=== PATIENT | female | born 1930 | race Caucasian/White ===

== ENCOUNTER 2016-08-15 08:05 | Emergency (ER) | payer OTHER ==
--- NOTE | 2016-08-15 08:30 | ED Physician Chart ---
Chief Complaint/HPI - Patient Information Date Seen:: 08/15/16 Time Seen:: 08:20 Chief Complaint:: R wrist and forearm pain since 5 pm yesterday. History of Present Illness:: Pt is [place] speaking. Interpretation is provided by her son Sushil per pt's request. Pt c/o pain in R wrist and forearm after she slipped and fell in her backyard. No LOC. No head or neck injury. No other bodily injury or pain. Pt has h/o HTN, but she has not taken her antihypertensive medications since last evening. Allergies:: Allergies Allergy/AdvReac Type Severity Reaction Status Date / Time codeine Allergy Verified 08/15/16 08:19 Vitals:: see Nurse Note. Historian:: Patient Family MD/PCP:: Dr. Garibay LMP:: Postmenopausal Review:: Nurse's Note Reviewed Review of Systems - Review of Systems General/Constitutional: No fever, No chills, No weight loss, No weakness, No diaphoresis, No edema, No loss of appetite Skin: No skin lesions, No rash, No bruising Head: No headache, No light-headedness Eyes: No loss of vision, No pain, No diplopia ENT: No earache, No nasal drainage, No sore throat, No tinnitus Neck: No neck pain, No swelling, No thyromegaly, No stiffness, No mass noted Cardio Vascular: No chest pain, No palpitations, No PND, No orthopnea, No edema Pulmonary: No SOB, No cough, No sputum, No wheezing GI: No nausea, No vomiting, No diarrhea, No pain, No melena, No hematochezia, No constipation, No hematemesis G/U: No dysuria, No frequency, No hematuria Musculoskeletal: Bone or joint pain (R wrist and forearm pain, see HPI.), No back pain, No muscle pain Endocrine: No polyuria, No polydipsia Psychiatric: No prior psych history Hematopoietic: No bruising, No lymphadenopathy Allergic/Immuno: No urticaria, No angioedema Neurological: No syncope, No focal symptoms, No weakness, No paresthesia, No headache, No seizure, No dizziness, No confusion, No vertigo Past Medical History - Past Medical History Past Medical History: HTN, DM (with last Accuchek this morning was 107.) Family History: Diabetes Melitus (sister) Social History: Non Smoker, No Alcohol, No Drug Use, , Other (lives with her son.) Employment:: Retired. Surgical History: Cholecystectomy (about 41 y/a), Hysterectomy (about 41 y/a.) Psychiatricy History: None Medication: Reviewed Family Medical History - Family Member Mother History Unknown: Yes Physical Exam - Physical Examination General/Constitutional: Awake, Well-developed, well-nourished, Alert, No distress, GCS 15, Non-toxic appearing, Ambulatory Other Gen/Cons comments:: Breathes comfortably, speaks clearly, and ambulates without difficulty. Head: Atraumatic Eyes: Lids, conjuctiva normal, PERRL, EOMI Skin: Nl inspection, No rash, No skin lesions, No ecchymosis, Well hydrated, No lymphadenopathy Neck: Nontender, Full ROM w/o pain, No JVD, No nuchal rigidity, No mass, No stridor Respiratory: Nl effort/Exclusion, Clear to Auscultation, No Wheeze/Rhonchi/Rales Cardio Vascular: RRR, No murmur, gallop, rubs, NL S1 S2 GI: No tenderness/rebounding/guarding, No organomegaly, No hernia, Normal BS's, Nondistended, No mass/bruits, No McBurney tenderness Other GI comments:: Abdomen is soft. Other Extremities comments:: RUE: Tenderness to palpation at lateral aspect of distal forearm/wrist with trace ecchymosis and minimal swelling. No definite snuff box tenderness. ROM is slightly decreased due to pain. No gross deformity, erythema, or open wound. There is also mild tenderness at lateral mid forearm without erythema, swelling , ecchymosis, or open wound. No detectable motor/sensory/vascular deficit. Good distal pulse. Neuro/Psych: Alert/oriented (oriented x 3), Judgement/insight normal, Mood normal, Normal gait, No focal deficits Misc: normal gait, Normal back, No paraspinal tenderness Labs/Radiology/EKG Results - Radiology Results Results: R wrist X-ray (3 v.): Based on my interpretation, impacted fx of distal radius without significant displacement. Official report is pending. R forearm X-ray ( 3 v.): Based on my interpretation, impacted fx of distal radius without significant displacement. Official report is pending ED Septic Shock - . Is Septic Shock (SBP<90, OR Lactate>4 mmol\L) present?: No Reassessment (Disposition) - Reassessment Reassessment:: 0945 Pt remains stable and feels much better. X-rays just became available. Radiological findings have been reviewed with pt. Management plan has been discussed. Interpretation by his son Sushil. 1010 Pt was reexamined after splint was placed. It was properly placed. No neurovascular deficit. Pt requests to go home now and will take her morning dose of Losartan when she gets home and will continue to monitor her BP at home. Aftercare instructions have been given. Interpretation is provided by his son Sushil. Reassessment Condition:: Improved - Diagnosis Diagnosis:: s/p mechanical fall with impacted fracture of R distal radius, stable. HTN, suboptimally controlled because pt has missed her last doses of antihypertensive medications since last evening. Pt has been informed about health risks associated with poorly controlled or uncontrolled HTN. Pt states that she will be compliant with her antihypertensive therapy and will continue monitoring her BP at home. - Aftercare/Follow up Instructions Aftercare/Follow-Up Instructions:: Refer to Discharge Instructions Notes:: Continue current care and medications. Wear R thumb spica splint and arm sling as directed. Fracture instructions given. May take Tylenol 500 mg tab one tab po q4-6h prn pain. F/U with PCP Dr. Garibay in one day for recheck and consideration for orthopedic referral. Return to ER immediately if condition worsens or if any further questions/problems. Medication Prescribed:: None - Patient Disposition Discharge/Transfer:: Home Time:: 10:15 Condition at Disposition:: Stable, Improved ED Discharge Plan - Patient Disposition Admit/Discharge/Transfer: PT DISCHARGED HOME Condition at Disposition: Improved Instructions: Arm Sling Use, [id number], Wrist Fracture, [id number] Accepting Physician: , Primary [Other]
--- NOTE | 2016-08-15 09:50 | Diagnostic Imaging Report ---
Right wrist (4 views) HISTORY: Pain Cortical irregularity that appears chronic noted along the lateral aspect of the distal radial metaphysis. No discrete fracture line is seen at this time. Joint spaces are maintained. Mild degenerative changes noted about the first carpal metacarpal joint region. Vascular calcification noted. IMPRESSION: 1. Cortical irregularity along the lateral aspect of the distal radius that appears chronic. However, in the presence of recent trauma and persistent symptoms, a repeat radiograph in 5 -- 7 days may be helpful for detection of an acute fracture. 2. Mild degenerative changes 3. Vascular calcification
--- NOTE | 2016-08-15 09:51 | Diagnostic Imaging Report ---
Right forearm (2 views) HISTORY: Pain, trauma No acute bony abnormality. No fractures. Vascular calcification noted. IMPRESSION: 1. No acute bony abnormalities In the presence of recent trauma and persistent symptoms, a repeat radiograph in 5-7 days may be helpful for detection of a subtle or occult fracture.
== END 2016-08-15 10:00 | disposition home or self-care (01) ==
LOC: ER 08:05
DX: T14.8 Other injury of unspecified body region (principal); I10 Essential (primary) hypertension; E11.9 Type 2 diabetes mellitus without complications; Z90.49 Acquired absence of other specified parts of digestive tract; Z90.710 Acquired absence of both cervix and uterus; Z88.6 Allergy status to analgesic agent; W01.0XXA Fall on same level from slipping, tripping and stumbling without subsequent striking against object, initial encounter; Y93.89 Activity, other specified; Y92.89 Other specified places as the place of occurrence of the external cause; Y99.8 Other external cause status
CPT/HCPCS: 99284; 96372; 29125; 73110; 73090; J1885; Z7502

== ENCOUNTER 2017-09-01 23:45 | Emergency (ER) | payer MEDICARE, OTHER ==
--- NOTE | 2017-09-02 00:23 | ED Physician Chart ---
ED Chief Complaint/HPI - Patient Information Date Seen:: 09/02/17 Time Seen:: 00:10 Chief Complaint:: left inferior chest pain History of Present Illness:: Patient developed left inferior chest pain about 2300 tonight. No trauma. Pain is increased with movement. Allergies:: Allergies Allergy/AdvReac Type Severity Reaction Status Date / Time codeine Allergy Verified 08/15/16 08:19 Vitals:: Vital Signs - 8 hr 09/01/17 23:45 Temp 97.5 F HR 65 RR 18 BP 149/50 O2 Sat % 99 Historian:: Patient, Family Member Review:: Nurse's Note Reviewed ED Review of Systems - Review of Systems General/Constitutional: No fever, No chills Skin: No skin lesions Head: No headache Eyes: No loss of vision ENT: No earache Neck: No neck pain Cardio Vascular: Chest pain Pulmonary: No SOB GI: No nausea, No vomiting, No diarrhea G/U: No dysuria Musculoskeletal: No bone or joint pain, No back pain, No muscle pain Endocrine: No polydipsia Hematopoietic: No bruising Allergic/Immuno: No urticaria Neurological: No syncope ED Past Medical History - Past Medical History Past Medical History: HTN, DM Family History: None Social History: Non Smoker, No Alcohol Surgical History: other (varicose veins) Psychiatricy History: None Medication: Reviewed Family Medical History - Family Member Mother History Unknown: Yes ED Physical Exam - Physical Examination General/Constitutional: Well-developed, well-nourished, Alert, No distress Head: Atraumatic Eyes: Lids, conjuctiva normal Other Skin comments:: Light touch under left breast causes different sensation as light touch under the right breast. ENMT: External ears, nose nl Neck: No nuchal rigidity Respiratory: Nl effort/Exclusion, Clear to Auscultation Cardio Vascular: RRR, No murmur, gallop, rubs GI: No tenderness/rebounding/guarding : No CVA tenderness Extremities: No tenderness or effusion, Full ROM Neuro/Psych: No focal deficits ED Labs/Radiology/EKG Results - Radiology Results Results: Chest x-ray showed calcification of the aortic arch; no pneumonia; no pneumothorax - EKG Interpretations Rate & Rhythm: normal sinus rhythm with a rate of 66 [place]: normal ED Assessment - Assessment General Assessment: The patient is having pain is very common site for shingles and with shingles pain can occur before the rash. ED Septic Shock - . Is Septic Shock (SBP<90, OR Lactate>4 mmol\L) present?: No - <6hrs of presentation: Vital Signs: Vital Signs - 8 hr 09/01/17 23:45 Temp 97.5 F HR 65 RR 18 BP 149/50 O2 Sat % 99 ED Reassessment (Disposition) - Reassessment Reassessment Condition:: Unchanged - Diagnosis Diagnosis:: Herpes zoster left inferior chest wall - Aftercare/Follow up Instructions Aftercare/Follow-Up Instructions:: Refer to Discharge Instructions Medication Prescribed:: Acyclovir 800 mg 5 times a day for 10 days - Patient Disposition Discharge/Transfer:: Home Condition at Disposition:: Stable, Unchanged
--- NOTE | 2017-09-02 08:07 | Diagnostic Imaging Report ---
Portable chest x-ray Time: 0044 hours History: Chest pain Allowing for portable technique the heart size is normal. No focal pulmonary parenchymal processes. No hilar or mediastinal abnormalities. Impression: No acute abnormalities.
== END 2017-09-02 00:50 | disposition home or self-care (01) ==
LOC: ER 23:45
DX: B02.8 Zoster with other complications (principal); E11.9 Type 2 diabetes mellitus without complications; I10 Essential (primary) hypertension
CPT/HCPCS: 71045-TC; 93005; Z7502; Z7610